=== PATIENT | female | born 1955 | race Caucasian/White ===

== ENCOUNTER 2016-06-03 07:30 | Inpatient (IN) | payer OTHER ==
--- NOTE | 2016-05-06 16:12 | NUR ---
JOINT REPLACEMENT PREOP CLASS PATIENT ATTENDED JOINT REPLACEMENT PREOP CLASS. CASE MANAGEMENT CONTACT INFORMATION PROVIDED. EDUCATION WAS PROVIDED REGARDING WHAT TO EXPECT BEFORE, DURING AND AFTER SURGERY. INCLUDING: OVERVIEW OF ANATOMY AND PHYSIOLOGY HOSPITAL TREATMENT SCHEDULE THERAPY DEMONSTRATION CASE MANAGEMENT RESPONSIBILITIES DISCHARGE PLANNING EQUIPMENT NEEDS JOINT REPLACEMENT WORKBOOK ANTI-COAGULATION SURGERY STRONG NUTRITIONAL PROTOCOL DISCHARGE [place] [facility] [place], WITH INSTRUCTIONS CJR AND PREOP SURVERY PREOP BATHING- CHG GIVEN ALL PATIENT'S QUESTIONS ANSWERED TO THEIR SATISFACTION. PATIENTS AND COACHES ENCOURAGED TO CALL WITH ANY ADDITIONAL QUESTIONS OR CONCERNS. CM FOLLOWING FOR TRANSITIONAL CARE PLANNING NEEDS DURING HOSPITALIZATION.
--- NOTE | 2016-05-19 12:04 | NUR ---
PMH, allergies, meds reviewed and documented. Preop and DOS instructions given including handouts of medications to stop before surgery, Surgical services pamphlet, ortho consent, letter from Dr Humphrey, and my contact information. Patient declined any further handouts. Requested patient to contact insurance company to get the name correct on her insurance card.
[~2016-06-03] VITALS: Ht 158.8 cm; Wt 99.0 kg
[~2016-06-03 07:30] MED LIST: ACETAMINOPHEN 500 MG TABLET PO ONE; ADAL40PE SQ; CEFAZOLIN 1 GRAM INJECTION IV ONE; CEFAZOLIN 2 GM VIAL IV ONE; DEXAMETHASONE 4mg/ml - 1ml INJECTION IV ONE; EPINEPHRINE 0.25 MG, BUPIVACAINE 0.25% 75 MG, MORPHINE SULFATE 15 MG, KETOROLAC 60 MG i... INJ ONE; FAMOTIDINE 20mg IVPB 50 ML IV ONE; FOLI-40 PO; LACT1CAP73 PO; LEVO150T9 PO; LIDOCAINE 1% (10mg/ml) 2ml SDV SQ ONE; LR 1,000 ML IV SCH; METH2.5T6 PO; METOCLOPRAMIDE 10mg/2ml INJECTION IV ONE; NOZIN NASAL SWAB NS ONE; ONDANSETRON 4mg/2ml INJECTION IV ONE
[2016-06-03] MEDS ORDERED: NAPROXEN 220 MG TABLET PO ONE (09:00)
[2016-06-03] MEDS ORDERED: TRANEXAMIC ACID 1000 MG/10 ML TOP ONE (13:00)
[2016-06-20] MEDS ORDERED: NORT50CA PO (10:30)
[2016-06-20] MEDS ORDERED: HYDR-4078 PO (10:30)
[2016-06-26] VITALS (27 sets, daily range): BP systolic 88–175; BP diastolic 50–81; PULSE 57–96; RESP 12–20; TEMP 96.9–98.4; O2SAT 91–99; Ht 158.8 cm; Wt 99.0 kg
[2016-06-26] MEDS ORDERED: FAMOTIDINE 20mg IVPB 50 ML IV ONE (06:00)
[2016-06-26] MEDS ORDERED: MELOXICAM 15 MG TABLET PO ONE (06:00)
[2016-06-26] MEDS ORDERED: TRANEXAMIC ACID 1000 MG/10 ML TOP ONE (06:00)
[2016-06-26] MEDS ORDERED: LIDOCAINE 1% (10mg/ml) 2ml SDV SQ ONE (06:00)
[2016-06-26] MEDS ORDERED: METOCLOPRAMIDE 10mg/2ml INJECTION IV ONE (06:00)
[2016-06-26] MEDS ORDERED: DEXAMETHASONE 4mg/ml - 1ml INJECTION IV ONE (07:00)
[2016-06-26] MEDS ORDERED: ONDANSETRON 4mg/2ml INJECTION IV ONE (07:00)
[2016-06-26] MEDS ORDERED: ACETAMINOPHEN 500 MG TABLET PO ONE (07:00)
[2016-06-26] MEDS ORDERED: NOZIN NASAL SWAB NS ONE ×2 (07:00→12:00)
[2016-06-26] MEDS ORDERED: DOCU-168 PO (07:41)
[2016-06-26 07:48] LABS: ANION GAP 15 MEQ/L (5-15); BUN/CREATININE RATIO 16 RATIO (6-26); CALCIUM 9.5 MG/DL (8.4-10.2); CHLORIDE 102 MEQ/L (98-107); CO2 - CARBON DIOXIDE 27 MEQ/L (22-30); CREATININE 0.7 MG/DL (0.7-1.2); GLOMERULAR FILTRATION RATE 85; GLUCOSE 107 MG/DL (65-110); POTASSIUM 3.7 MEQ/L (3.6-5); SODIUM 144 MEQ/L (134-144)
[2016-06-26] MEDS: LR 1,000 ML IV SCH (07:55)
[2016-06-26] MEDS ORDERED: EPINEPHRINE 0.25 MG, BUPIVACAINE 0.25% 75 MG, MORPHINE SULFATE 15 MG, KETOROLAC 60 MG i... INJ ONE ×5 (08:00)
[2016-06-26] MEDS ORDERED: CEFAZOLIN 1 GRAM INJECTION IV ONE (08:00)
--- NOTE | 2016-06-26 08:28 | ANESPREOP ---
Anesthesia Record Date and Time DATE: 06/26/16 TIME: 08:23 Pre-Op Diagnosis OA Right Knee Proposed Surgical Procedure RT TKA Allergies: Coded Allergies: Sulfa (Sulfonamide Antibiotics) (Verified Allergy, Unknown, HIVES, 06/26/16 ) Ht/Wt/BMI Height: 5 ' 2.50 " Weight: 95.700 kg BMI: 38.0 kg/m2 Vital Signs Date Time Temp Pulse Resp B/P Pulse Ox O2 Delivery O2 Flow Rate FiO2 06/26/16 07:10 98.3 93 15 175/81 98 Room Air Medications Inpatient Medications Current Medications Medications (Trade) Dose Ordered Sig/Bridger Start Time Stop Time Status Last Admin Dose Admin Lactated Ringer's 1,000 ml @ 50 mls/hr Q20H 06/03/16 07:00 Cancel Lactated Ringer's (Lactated Ringers) 1,000 ml @ 50 mls/hr Q20H 06/26/16 07:00 06/26/16 07:55 50 MLS/HR Adalimumab (Humira) 40 Mg/0.8 Ml Pen.ij.kit, 1 SYRINGE SQ Q2WK, (Reported) TAKES EVERY OTHER THURSDAY Last Taken: on 06/04/16 Docusate Sodium (Colace) 100 Mg Capsule, 1 CAP PO BID, (Reported) Last Taken: on 06/25/16 2100 Folic Acid (Folic Acid) 1 Mg Tablet, 1 MG PO DAILY, (Reported) Last Taken: on 06/22/16 Hydrocodone/Acetaminophen ([place] 10-325 Tablet) 10- 325 Tablet, 1-2 TAB PO Q4-6H, (Reported) Last Taken: on 06/25/16 2130 Lactobacillus Combination No.4 (Probiotic) 1 Each Capsule, 1 CAP PO HS, (Reported) Last Taken: on 06/25/16 0700 Levothyroxine Sodium (Levothyroxine Sodium) 150 Mcg Tablet, 150 MCG PO DAILY, (Reported) Last Taken: on 06/26/16 0540 Methotrexate Sodium (Methotrexate) 2.5 Mg Tablet, 8 TAB PO THURSDAY, (Reported) Last Taken: on 06/13/16 Currently on Beta Adalgisa: No Medical/Surgical History Anesthesia PMH: Reports: Asthma (INHALERS PRN), Deep Vein Thrombosis ( SUPERFICIAL BLOOD CLOT IN ONE LEG-9-10 YRS AGO), Thyroid Disease, Denies: Anesthesia Reactions (SHIVERING; OTHERWISE NO KNOWN AIRWAY ISSUES), Cancer, Glaucoma, Malignant Hyperthermia, Sleep Apnea Smoking Status: Never smoker Use Chewing Tobacco?: No Second Hand Exposure: No Substance Use Type: does not use Alcohol Intake: a few times a month, other (occas) HX of Last Menstrual Period: HYST Past Surgical History Orthopedic Surgeries: Yes - LT TKA;MULT KNEE SCOPES; RT RCR Abdominal Surgeries: Genitourinary Surgeries: Cardiac Surgeries: Endocrine Surgeries: Reproductive Surgeries: Yes - HYST Neurological Surgeries: Ear Surgeries: Nose Surgeries: Throat Surgeries: Yes - TONSILLECTOMY Other Surgeries: Anesthesia Adverse Reactions: FOUND none Family Hx of Anesthesia Advers: none Hx of Motion Sickness: No Pertinent Findings Laboratory Tests 06/26/16 07:15 EKG Rhythm: Sinus Rhythm Physical Exam Respiratory: Bilat breath sounds equal, Lungs clear Cardiovascular: FOUND Regular rate, rhythm, FOUND No murmur Airway Assessment Mallampati Score: II TMD: 3 Fingerbreadths Neck Extension: Good Overall Assessment: No Airway Concerns ASA: 2 Plan Regional: Spinal Peripheral Nerve Block: Saphenous - RT Discussion Discussed risks/options/alternatives of anesthesia and questions answered. Patient consents. Nursing pain assessment noted. Present: Spouse Attestation Statement Prior to the delivery of any anesthetic medication, I examined the patient, developed the plan, obtained the patient's consent and discussed the risk and benefits of the procedure with the patient/guardian. JOSE RUANO CRNA Jun 26, 2016 08:27
[2016-06-26] MEDS ORDERED: VANCOMYCIN 1 GRAM INJECTION ONE (08:52)
[2016-06-26] MEDS ORDERED: MIDAZOLAM 2mg/2ml INJECTION ONE (09:07)
[2016-06-26] MEDS ORDERED: FENTANYL 100mcg/2ml INJECTION ONE (09:07)
[2016-06-26] MEDS ORDERED: KETAMINE 500mg/10ml INJECTION ONE (09:20)
[2016-06-26] MEDS ORDERED: PROPOFOL 500mg 50 ML IV ONE (09:20)
[2016-06-26] MEDS ORDERED: LIDOCAINE 2% (20mg/ml) 5ml PF SDV ONE (09:20)
[2016-06-26] MEDS ORDERED: PROPOFOL 200mg 20 ML IV ONE (10:50)
[2016-06-26] MEDS ORDERED: ROPIVACAINE 0.5% (5mg/ml) 30ml INJ ONE (11:27)
[2016-06-26] MEDS ORDERED: SENNOSIDES 8.6 MG TABLET PO PRN (12:00)
[2016-06-26] MEDS ORDERED: NAPROXEN 220 MG TABLET PO PRN (12:00)
[2016-06-26] MEDS ORDERED: METOCLOPRAMIDE 10mg/2ml INJECTION IV PRN (12:00)
[2016-06-26] MEDS ORDERED: DiphenhydrAMINE 50 MG/ML INJECTION IV PRN (12:00)
[2016-06-26] MEDS ORDERED: ONDANSETRON 4mg/2ml INJECTION IV PRN (12:00)
[2016-06-26] MEDS ORDERED: PRN ORDERS MC (12:00)
[2016-06-26] MEDS ORDERED: DiphenhydrAMINE 25 MG CAPSULE PO PRN (12:00)
[2016-06-26] MEDS ORDERED: LORAZEPAM 1 MG TABLET PO PRN (12:00)
--- NOTE | 2016-06-26 12:40 | ANESPO ---
Post-Op Note Date 06/26/16 Time: 12:40 Status Pt Participated in Evaluation: Pt participated in person Vital Signs Date Time Temp Pulse Resp B/P Pulse Ox O2 Delivery O2 Flow Rate FiO2 06/26/16 12:30 84 16 111/68 96 Room Air 06/26/16 12:01 97.9 Respiratory Function: Airway patent, Regular respirations Cardiovascular Function: Regular pulse Telemetry Pattern: SR Mental Status: Alert/oriented Pain Level Intensity: 0 Unable to Assess Pain Due To: INTRA OP Hydration: IV infusing Complications during Recovery None apparent Follow-Up Instructions Instructions Per Surgeon JOSE RUANO CRNA Jun 26, 2016 12:40
--- NOTE | 2016-06-26 12:42 | ANESPD ---
Peripheral Nerve Blockade Physician: Humberto Humphrey MD Date: 06/26/16 Surgical Procedure: Right TKA Discussion Discussed risks/options/alternatives of anesthesia and questions answered. Patient consents. Nursing pain assessment noted. Block Start: 12:06 Block Stop: 12:20 Block Employed: Adductor Canal Indication: post-operative pain Approach: right side confirmed Position: supine Patient: Consent, risks/benefits discussed, Informed, post block act. discussed Monitors: EKG, SpO2, NIBP Sedation: Awake Initial Vital Signs First Documented Vital Signs Date Time Temp Pulse Resp B/P Pulse Ox O2 Delivery O2 Flow Rate FiO2 06/26/16 07:10 98.3 93 15 175/81 98 Room Air Post Vital Signs Vital Signs Date Time Temp Pulse Resp B/P Pulse Ox O2 Delivery O2 Flow Rate FiO2 06/26/16 12:30 84 16 111/68 96 Room Air 06/26/16 12:01 97.9 Initial Pain Score: 0 Post Block Score: 0 Prep: chlorhexadine/ETOH Ultrasound Used?: Yes Nerve Simulator Muscle Response: No Injectate Ropivacaine (%): 0.5 Ropivacaine (mL): 20 Was Epi 1:200,000 Used?: No Injection Injection made incrementally with constant monitoring and aspiration every [5] ml. JOSE RUANO CRNA Jun 26, 2016 12:42
--- NOTE | 2016-06-26 12:58 | DI ---
Indication: ITS.REASON: POSTOP right knee replacement PROCEDURE: KNEE RIGHT 2 VIEW: Encounter: Initial Comparison: None Findings: Postoperative changes of right total knee replacement are seen. There is expected postoperative subcutaneous gas. No evidence of hardware failure or acute fracture. No retained radiopaque surgical instruments or sponges. Overlying material causing artifact. Impression: New right total knee prosthesis without evidence of immediate complication. .
--- NOTE | 2016-06-26 13:04 | NUR ---
WARFARIN CONSULT S: 60 y/o F starting warfarin for VTE ppx post-TKA. Goal INR 1.5-2.5. O: Date INR Warfarin Dose 06/26 -- PLAN: 4 mg A/P: No significant drug-drug interactions. Will order warfarin 4 mg PO x 1 today. Will continue to monitor & make adjustments accordingly. Thank you for the consult. Carmella Tony, PharmD, BCPS
[2016-06-26] MEDS ORDERED: WARFARIN 4 MG TABLET PO ONE (13:15)
--- NOTE | 2016-06-26 13:27 | NUR ---
Admit Pt admitted from PACU via cart. Pt awake and conversing appropriately with staff. Pt transferred on to bed with use of slide board. SCDs and polar pack in place. Pt denies pain and nausea. Post op vitals started and stable.
--- NOTE | 2016-06-26 14:14 | PDOPERATE ---
Operative Report Date of Operation 06/26/16 Side: Right Preoperative Diagnosis: knee primary DJD Postoperative Diagnosis Same as preoperative diagnosis. Operation/Procedure: total knee arthroplasty (right) Surgeon Eder Humphrey MD Yarn Sorter BERTRAND Reid Complications None. Regional Block: Spinal Estimated Blood Loss See Anesthesia Record. Fluids Please See Anesthesia Record. Description of Operation Ms. Rodarte and her right knee were identified and marked in the the preoperative holding area. She was then brought back to the operating suite and proper anesthesia was administered. She was then positioned supine on the operating table. The right lower extremity was then prepped and draped in my normal sterile fashion. Timeout was performed with all operating room personnel. The leg was exsanguinated and tourniquet inflated 250 mmHg. Preoperative motion was very limited with flexion to 90. A standard anterior incision followed by a medial parapatellar approach was utilized. The knee was extremely tight and we started by removing anterior osteophytes and resurfacing the patella to a size 29. Large medial release had to be performed in order to expose the distal femur. A distal femoral cut was made in 5 of valgus using intramedullary guide. The femur was sized at a 4 and rotation set using the epicondylar axis. Distal femoral cuts were performed. A proximal tibial cut was made using extramedullary guide. Remaining osteophytes and meniscus were removed which were extensive especially posteriorly. I cut for a PS box to allow for more flexion. Gaps were checked and they were well balanced and rectangular. Trial components were placed with a 9 mm spacer. This allowed for range of motion to approximately 110 and the patella tracked well. The tourniquet was let down which did help with flexion. The knee was stable throughout range of motion. The tibia rotation was then marked and the tibia stamped at the proper rotation at a size 3. The bone was prepared for cementing and all components cemented into place and allowed to cure in extension. Betadine solution was used for 3 minutes during the curing period and then fully irrigated out with 1 L of normal saline. The tourniquet was deflated and hemostasis obtained with electrocautery. After the cement had cured the knee was taken through range of motion check for balance and stability which were good. Vancomycin powder was placed into the wound. The arthrotomy was closed with #1 Vicryl. The remainder of the wound was then closed by my elementary assistant teacher utilizing 2-0 vycral in the subcutaneous tissue. 4-0 monocryl was used in the subcuticular layer followed by dermabond and a sterile dressing. After closure the patient will be transferred to the recovery room under the care of anesthesia. OMI HUMPHREY MD Jun 26, 2016 14:14
[2016-06-26] MEDS: NOZIN NASAL SWAB NS SCH ×2 (14:28→21:17)
[2016-06-26] MEDS: CEFAZOLIN 2 G in NORMAL SALINE 100 ML IV SCH (16:50)
[2016-06-26] MEDS: NORMAL SALINE 1,000 ML IV SCH (17:13)
--- NOTE | 2016-06-26 18:47 | NUR ---
SHIFT SUMMARY PT ALERT AND ORIENTED X3. PT ON RA, DENIES SOA. RATES PAIN 3/10 AT THIS TIME, PRN ALEVE AND NORCO ADMINISTERED THIS SHIFT, PT REPORTED DECREASED PAIN. PT DENIES N/V. ADEQUATE URINE OUTPUT, PT DENIES RETENTION. POLAR PACK APPLIED TO RIGHT KNEE. PT UP WITH STAND BY ASSIST, GAIT BELT, WALKER. PT ABLE TO MAKE NEEDS KNOWN. DRESSING TO RIGHT KNEE C/D/I. IVF INFUSING ORDERED INTO RIGHT HAND. BED ALARM ON, CALL LIGHT WITHIN REACH.
[2016-06-26] MEDS ORDERED: ENOXAPARIN 40 MG/0.4 ML INJECTION SQ SCH (21:00)
[2016-06-26] MEDS ORDERED: OXYCODONE I.R. 5 MG TABLET PO PRN (21:30)
[2016-06-26] MEDS ORDERED: SENNOSIDES 8.6 MG TABLET PO SCH (22:00)
[2016-06-27 00:12] VITALS: BP 108/66; PULSE 65; RESP 14; TEMP 98.5; O2SAT 93
[2016-06-27] MEDS: NORMAL SALINE 1,000 ML IV SCH (00:25)
[2016-06-27 01:00] VITALS: BP 108/66; PULSE 65; RESP 14; TEMP 98.5; O2SAT 93
[2016-06-27] MEDS: CEFAZOLIN 2 G in NORMAL SALINE 100 ML IV SCH (01:34)
[2016-06-27] MEDS: LR 1,000 ML IV SCH (03:00)
[2016-06-27 05:06] LABS: HGB - HEMOGLOBIN 11.8 GM/DL (12-16); MEAN CORPUSCULAR HGB 29.9 UUG (26-34); MEAN CORPUSCULAR HGB CONC(MCHC 31.9 GM/DL (31-37); MEAN CORPUSCULAR VOLUME 93.9 UM3 (80-100); MEAN PLATELET VOLUME 10.8 UM3 (9.4-12.4); RED BLOOD COUNT 3.94 M/MM3 (4.00-5.20); WBC - WHITE BLOOD COUNT 16.9 T/MM3 (4.5-11.0)
[2016-06-27 05:17] LABS: INR 1.15 (0.76-1.04); PROTHROMBIN TIME 12.5 SEC (9.31-12.49)
--- NOTE | 2016-06-27 05:19 | NUR ---
Pt had a restful night after her pain medication was changed.
[2016-06-27 05:23] LABS: ANION GAP 14 MEQ/L (5-15); BUN/CREATININE RATIO 23 RATIO (6-26); CALCIUM 8.6 MG/DL (8.4-10.2); CHLORIDE 106 MEQ/L (98-107); CO2 - CARBON DIOXIDE 23 MEQ/L (22-30); CREATININE 0.8 MG/DL (0.7-1.2); GLOMERULAR FILTRATION RATE 73; GLUCOSE 130 MG/DL (65-110); POTASSIUM 4.3 MEQ/L (3.6-5); SODIUM 143 MEQ/L (134-144)
[2016-06-27] MEDS: NOZIN NASAL SWAB NS SCH (05:53)
[2016-06-27] MEDS ORDERED: LEVOTHYROXINE 150 MCG TABLET PO SCH (06:30)
[2016-06-27] MEDS ORDERED: OXYCODONE I.R. 5 MG TABLET PO PRN (06:30)
[2016-06-27 08:00] VITALS: PULSE 61; RESP 18
[2016-06-27 08:04] VITALS: BP 108/60; PULSE 61; RESP 18; TEMP 97.5; O2SAT 99
--- NOTE | 2016-06-27 08:11 | PDORTHOPN ---
Subjective Date DATE: 06/27/16 TIME: 08:07 Objective Vital Signs Vital signs Vital Signs 06/26/16 06/27/16 06/27/16 06/27/16 21:34 00:12 01:00 08:00 Temp 97.3 98.5 98.5 Pulse 69 65 65 61 Resp 16 14 14 18 B/P 106/64 108/66 108/66 Pulse Ox 95 93 93 O2 Delivery Room Air Room Air Room Air 06/27/16 08:04 Temp 97.5 Pulse 61 Resp 18 B/P 108/60 Pulse Ox 99 O2 Delivery Room Air Height (Feet): 5 Height (Inches): 2.50 Weight (Kilograms): 99.000 Laboratory Laboratory Laboratory Tests 06/27/16 04:22 Laboratory Tests 06/26/16 07:15 06/27/16 04:22 Assessment & Plan Problems: (1) Degenerative arthritis of right knee Status: Chronic Qualifiers: Osteoarthritis type: primary Qualified Codes: M17.11 - Unilateral primary osteoarthritis, right knee Assessment & Plan: Lovenox-Coumadin protocol for VTE prophylaxis. SCD's and early mobilization for added DVT protection. PT/OT services to improve independent function. Discharge Planning per Case Management. (2) Leukocytosis Status: Acute Assessment & Plan: She is afebrile and has no s/sx of infection. This is likely a stress response to surgery / patria operative steroids. Will monitor for signs of infection. (3) Rheumatoid arthritis Status: Chronic Assessment & Plan: Hold off Methotrexate and immune modulator drugs for now. Hospital Course Summary Disclaimer The visit summary below is not to be considered part of the above Progress Note. FIGUEROA JEWELL Jun 27, 2016 08:11
[2016-06-27] MEDS ORDERED: DOCUSATE SODIUM 100 MG CAPSULE PO SCH (09:00)
[2016-06-27] MEDS ORDERED: POLYETHYL.GLYCOL 3350 PACKET 17gm PO SCH (09:00)
[2016-06-27] MEDS ORDERED: FOLIC ACID 1 MG TABLET PO SCH (09:00)
--- NOTE | 2016-06-27 09:59 | NUR ---
WARFARIN CONSULT S: 60 y/o F starting warfarin for VTE ppx post-TKA. Goal INR 1.5-2.5. O: Date INR Warfarin Dose 06/26 -- 4 mg 06/27 -- Plan 5 mg A/P: No significant drug-drug interactions. I will order warfarin 5 mg PO x 1 today as the INR is subtherapeutic. The Pharmacy will continue to monitor & make adjustments accordingly. Thank you for the consult, Devon Walters RPh.
--- NOTE | 2016-06-27 10:02 | NUR ---
CM CM IN TO VISIT WITH PT. SHE IS ALERT AND ORIENTED. SHE PLANS TO RETURN HOME. SHE WILL DO OUTPT PT AT [facility]. SHE HAS FWW. HER DAUGHTER WILL GIVE HER LOVENOX INJECTIONS. RX IS CALLED TO [facility] TO CHECK [facility] FOR LOVENOX 40MG SQ DAILY #5 NO REFILL. PT IS GIVEN CM CONTACT INFORMATION. LACE SCORE IS 6. Addendum: 06/27/16 at 1003 by TARUN BILLS RN Amended: Links added.
[2016-06-27] MEDS ORDERED: WARFARIN 5 MG TABLET PO SCH (12:00)
[2016-06-27 12:12] VITALS: BP 131/67; PULSE 82; RESP 16; TEMP 96.3; O2SAT 99
[2016-06-27] MEDS ORDERED: ENOX40DI SQ (12:13)
[2016-06-27] MEDS ORDERED: NAPR-1119 PO (12:13)
[2016-06-27] MEDS ORDERED: WARF2.5T73 PO (12:13)
[2016-06-27] MEDS ORDERED: HYDR-3995 PO (12:13)
[2016-06-27] MEDS ORDERED: POLY17PO18 PO (12:13)
--- NOTE | 2016-06-27 12:21 | DSPDOC ---
General Date Date DATE: 06/27/16 TIME: 12:18 Attending Physician Humberto Humphrey MD Admitting Physician Humberto Humphrey MD Consulting Physician Admitting Diagnosis PRIMARY DEGENERATIVE JOINT DISEASE RIGHT KNEE Discharge Diagnosis Primary DJD right knee Procedures Right total knee arthroplasty Diagnosis Right knee primary DJD History of Present Illness HPI Elements This patient was admitted for elective surgical tx of end stage degenerative joint disease that failed to respond to conservative treatment. Further details of this is found in the admission H&P. Hospital Course After appropriate preoperative clearance and signing of operative consent, the patient was given IV antibiotics, according to orthopedic protocol. The patient was taken to the operating room and underwent elective joint arthroplasty. Following surgery, antibiotics were discontinued less than 24 hours according to joint protocol. Appropriate anticoagulants were initiated and SCDs added for DVT prevention. The dressing was clean, dry, and intact. Pain control was obtained via multimodal approach. Bowel motivation addressed with scheduled and PRN medications. Early mobilization was initiated through PT services. Discharge arrangements made by a collaborative effort between the patient and Case Management. Follow-up is scheduled in 2-3 weeks. Discharge instructions given by orthopedic providers and nursing staff at discharge. Discharge condition was good. Problems: (1) Degenerative arthritis of right knee Status: Chronic Assessment & Plan: Lovenox-Coumadin protocol for VTE prophylaxis. SCD's and early mobilization for added DVT protection. PT/OT services to improve independent function. Discharge Planning per Case Management. (2) Leukocytosis Status: Acute Assessment & Plan: She is afebrile and has no s/sx of infection. This is likely a stress response to surgery / patria operative steroids. Will monitor for signs of infection. (3) Rheumatoid arthritis Status: Chronic Assessment & Plan: Hold off Methotrexate and immune modulator drugs for now. Ongoing Care Required?: No Leukocytosis: d/t IV Decadron preop, d/t surg. stress response Laboratory Laboratory Tests Test 06/27/16 04:22 White Blood Count 16.9T/MM3 Red Blood Count 3.94M/MM3 Hemoglobin 11.8GM/DL Hematocrit 37.0% Mean Corpuscular Volume 93.9UM3 Mean Corpuscular Hemoglobin 29.9UUG Mean Corpuscular Hemoglobin Concent 31.9GM/DL RDW Standard Deviation 48.6FL Platelet Count 224T/MM3 Mean Platelet Volume 10.8UM3 Prothromb Time International Ratio 1.15 Turbidity < 20 Sodium Level 143MEQ/L Potassium Level 4.3MEQ/L Chloride Level 106MEQ/L Carbon Dioxide Level 23MEQ/L Anion Gap 14MEQ/L Blood Urea Nitrogen 18.0MG/DL Creatinine 0.8MG/DL Glomerular Filtration Rate Calc 73 BUN/Creatinine Ratio 23RATIO Glucose Level 130MG/DL Calculated Osmolality 279MOSM/KG Calcium Level 8.6MG/DL Icterus Index < 2 Chemistry Specimen Hemolysis < 15 Home Meds Active Scripts Hydrocodone/Apap ([place] 10-325 Tablet) 10-325 Tablet, 1-2 TAB PO Q4HR, #60 TAB Prov:LEONEL OVALLE 06/27/16 Warfarin Sodium (Warfarin Sodium) 2.5 Mg Tablet, 2.5 MG PO NOON, #30 TAB Take 1 tablet, by mouth, 1 time a day (at NOON). Prov:LEONEL OVALLE 06/27/16 Polyethylene Glycol 3350 (Healthylax) 17 Gm Powd.pack, 17 G PO DAILY, #30 PACKET Prov:LEONEL OVALLE 06/27/16 Naproxen Sodium (Naproxen 220mg) 220 Mg Tablet, 440 MG PO BID Y for PAIN, #84 TAB Prov:LEONEL OVALLE 06/27/16 Enoxaparin Sodium (Lovenox) 40 Mg/0.4 Ml Inj, 40 MG SQ Q24H, #5 Prov:LEONEL OVALLE 06/27/16 Reported Medications Docusate Sodium (Colace) 100 Mg Capsule, 1 CAP PO BID for STOOL SOFTENING 06/26/16 Lactobacillus Combination No.4 (Probiotic) 1 Each Capsule, 1 CAP PO HS 05/19/16 Folic Acid (Folic Acid) 1 Mg Tablet, 1 MG PO DAILY 01/20/12 Levothyroxine Sodium (Levothyroxine Sodium) 150 Mcg Tablet, 150 MCG PO DAILY 01/20/12 Discontinued Reported Medications Hydrocodone/Acetaminophen ([place] 10-325 Tablet) 10-325 Tablet, 1-2 TAB PO Q4-6H , TAB 06/20/16 Adalimumab (Humira) 40 Mg/0.8 Ml Pen.ij.kit, 1 SYRINGE SQ Q2WK, SYRINGE TAKES EVERY OTHER Thursday05/19/16 Methotrexate Sodium (Methotrexate) 2.5 Mg Tablet, 8 TAB PO Thursday05/19/16 Discharge Disposition Please refer to Case Management Notes for patient's disposition. Estimated Blood Loss 50.0 LEONEL OVALLE Jun 27, 2016 12:21
[2016-06-27] MEDS ORDERED: OXYC5TAB84 PO (14:25)
--- NOTE | 2016-06-27 14:42 | NUR ---
Discharge Pt discharged at this time via ambulatory status through the main entrance in the company of an adult. VS stable on RA. Mepilex dressing c/d/i. Prescriptions sent with Pt. IV catheter DC'd prior to discharge, catheter tip intact. Discharge instructions and packet gone over with Pt. This RN discussed medications, activity, restrictions, diet, and follow up appts with Pt. Pt verbalized understanding.
[2016-06-28] MEDS ORDERED: MILK OF MAGNESIA 30 ML SUSP PO SCH (08:00)
[2016-06-28] MEDS ORDERED: BISACODYL 10 MG SUPPOSITORY RECTALLY SCH (20:00)
== END 2016-06-27 14:42 | disposition home or self-care (01) | DRG 470 ==
LOC: SRG 06-26 06:44
PROVIDERS: ADMIT Orthopaedic Surgery; ATTEND Orthopaedic Surgery
PROC: 0SRC0J9 Replacement of Right Knee Joint with Synthetic Substitute, Cemented, Open Approach (ICD-10-PCS; principal; 2016-06-26 09:40)
DX: M17.11 Unilateral primary osteoarthritis, right knee (principal); D72.829 Elevated white blood cell count, unspecified; M06.861 Other specified rheumatoid arthritis, right knee; E03.9 Hypothyroidism, unspecified; J45.909 Unspecified asthma, uncomplicated; Z96.652 Presence of left artificial knee joint; E78.5 Hyperlipidemia, unspecified
CPT/HCPCS: 36415; 80048; 85027; 85610; 94664

== ENCOUNTER 2016-07-05 18:36 | Emergency (ER) | payer OTHER ==
[~2016-07-05] VITALS: Ht 158.8 cm; Wt 98.5 kg
[~2016-07-05 18:36] MED LIST changes: -ACETAMINOPHEN 500 MG TABLET PO ONE; -ADAL40PE SQ; -CEFAZOLIN 1 GRAM INJECTION IV ONE; -CEFAZOLIN 2 GM VIAL IV ONE; -DEXAMETHASONE 4mg/ml - 1ml INJECTION IV ONE; +DOCU-168 PO; +ENOX40DI SQ; -EPINEPHRINE 0.25 MG, BUPIVACAINE 0.25% 75 MG, MORPHINE SULFATE 15 MG, KETOROLAC 60 MG i... INJ ONE; -FAMOTIDINE 20mg IVPB 50 ML IV ONE; -LIDOCAINE 1% (10mg/ml) 2ml SDV SQ ONE; -LR 1,000 ML IV SCH; -METH2.5T6 PO; -METOCLOPRAMIDE 10mg/2ml INJECTION IV ONE; +NAPR-1119 PO; -NOZIN NASAL SWAB NS ONE; -ONDANSETRON 4mg/2ml INJECTION IV ONE; +OXYC5TAB84 PO; +POLY17PO18 PO; +WARF2.5T73 PO
--- OUTSIDE RECORDS SUMMARY | 2016-07-05 18:39 | XMS REPORT | Continuity of Care Document ---
Author Author [facility] Organization [facility] Address Unknown Phone Unavailable Support Name Relationship Address Phone OMI HUMPHREY MD Caregiver [address] [place] [address] Unavailable OMI HUMPHREY MD Caregiver [address] [place] [address] Unavailable DYLLAN PENA Caregiver [address] [place] [address] Unavailable RAFAEL ALCALA Next Of Kin [address] [place], [place] [id number] Insurance Providers Guarantor AricGillian bangColleen Address [address] [id number] Email DENIED 16 Payer [employer] Policy Number [id number] Subscriber's Name Rafael Alcala Relationship 01 Spouse Group Number [id number] Advance Directives Directive Response Recorded Date/Time Ordered Resuscitation Status Full Code 06/02/16 12:25pm Resuscitation Documents on File No 06/26/16 7:40am DPOA for Healthcare Only No 06/26/16 7:40am Living Will No 06/26/16 7:40am Problems Active Problems Medical Problem Onset Date Status Asthma Unknown Degenerative arthritis of right knee Unknown Chronic Fibromyalgia Unknown Hyperlipemia Unknown Hypothyroidism Unknown Leukocytosis Unknown Acute Obesity, morbid, BMI 40.0-49.9 Unknown Rheumatoid arthritis Unknown Chronic Medications Current Home Medications Medication Dose Units Route Directions Days Qty Instructions Start Date Docusate Sodium (Colace) 100 Mg Capsule 1 Cap Oral Twice A Day for Stool Softening 06/26/16 Enoxaparin Sodium (Lovenox) 40 Mg/0.4 Ml Inj 40 Mg Sub-Q Every 24 Hours 5 06/27/16 Folic Acid 1 Mg Tablet 1 Mg Oral Daily 01/20/12 Lactobacillus Combination No.4 (Probiotic) 1 Each Capsule 1 Cap Oral Bedtime 05/19/16 Levothyroxine Sodium 150 Mcg Tablet 150 Mcg Oral Daily 01/20/12 Naproxen Sodium (Naproxen 220MG) 220 Mg Tablet 440 Mg Oral Twice A Day as needed for Pain 84 Tablet 06/27/16 Oxycodone Hcl 5 Mg Tablet 5-15 Mg Oral Every 3 Hours as needed for Pain 50 Tablet 06/27/16 Polyethylene Glycol 3350 (Healthylax) 17 Gm Powd.pack 17 G Oral Daily 30 Packet 06/27/16 Warfarin Sodium 2.5 Mg Tablet 2.5 Mg Oral Give At Noon 30 Tablet Take 1 tablet, by mouth, 1 time a day (at NOON). 06/27/16 Past Home Medications Medication Directions Ordered Status Adalimumab (Humira) 40 Mg/0.8 Ml Pen.ij.kit, 1 Syringe Sub-Q Every 2 Weeks Discontinued Hydrocodone/Acetaminophen (Trevor 10-325 Tablet) 10-325 Tablet, 1-2 Tab Oral Every 4-6 Hours 06/20/16 Discontinued Methotrexate Sodium (Methotrexate) 2.5 Mg Tablet, 8 Tab Oral Thursday05/19/16 Discontinued Social History Social History Problem Response Recorded Date/Time Onset Date Status Reason for Hospitalization RIGHT TOTAL KNEE REPLACEMENT 06/27/2016 12:27pm Not Applicable Not Applicable Chewing Tobacco Status No 06/26/2016 8:40am Not Applicable Not Applicable Hx Substance Use No 06/26/2016 8:40am Not Applicable Not Applicable Hx Alcohol Use Y 2X WEEK 06/26/2016 8:40am Not Applicable Not Applicable Has the pt used tobacco in the last 12 months No 06/26/2016 8:40am Not Applicable Not Applicable Query Response Start Date Stop Date Smoking Status Never smoker Hospital Discharge Instructions Instructions: Care Instructions: Reason for Hospitalization: RIGHT TOTAL KNEE REPLACEMENT I was in the hospital because (patient own words): right knee replacement Discharge Diet: Resume normal diet as tolerated Discharge Activity: Continue the exercises you were given in the hospital three times a day. Your therapist will provide you with a home therapy program prior to your hospital discharge. As you feel stronger, increase the number of repetitions you do in each session. Please check with us before you swim, use a whirlpool, drive or ride a bicycle. Follow Up Appointments: Follow up as scheduled Pending Lab / Results: No Pending Lab Patient Instructions: Driving may be resumed once you are no longer taking narcotic medications and feel you can safely operate the vehicle. You may wish to practice in an empty parking lot at first. Keep in mind that your reaction time will be delayed for up to 6 weeks after surgery. Contact your surgeon for antibiotics to take before having dental work. Wound/Incision Care: In most cases, a Mepilex dressing will be placed at the time of surgery. This dressing will not need to be covered while showering. Leave dressing in place until your follow-up appointment as long as it remains clean, dry and stuck down well around the edges. Call your Doctor if you encounter a problem with your dressing. Please avoid submerging your incision until it is completely healed, once the Mepilex dressing is removed. This includes bathtubs, swimming pools, and hot tubs. DO NOT USE ALCOHOL, PEROXIDE, OR OINTMENTS of any kind on your incision. Pain Management/Treatment: Ice packs may be used, and will also help with the pain. You will be given a prescription for pain. Expected Signs/Symptoms: Some swelling around the incision, as well as in your feet and legs is normal. To help with this, elevate your feet on a footstool when sitting in a chair, and do the ankle pumps and circles whenever you are sitting still. Muscle action helps to move collected fluid out of the tissues and improve circulation. Ice packs may be used, and will also help with the pain. Report any persistent swelling, calf tenderness, increase in pain, or pain in the calf with warmth, or redness to your doctor. Notify Physician If: Report any complications to my office immmediately. This includes excessive bleeding, wound breakdown, redness around the wound, uncontrolled pain, or fever over 101 on 3 different measurements. Eat a balanced diet and get plenty of rest. During Business Hours:: If you have any questions or concerns, please call during regular office hours ([phone]). After Business Hours:: If you have any problems or need to reach a physician after hours or on the weekend please call the hospital's main number [phone] to have your physician paged. Condition at time of discharge: Good Plan of Care Discharge Date 06/27/16 2:42pm Disposition 01 DISCHARGED HOME, SELF-CARE Instructions/Education Provided [facility] Postop Instructions NMDulce Maria Humphrey General Instructions Prescriptions See Medication Section Additional Instructions/Education FOLLOW UP WITH DR HUMPHREY 07-21-16 @ 1:00PM LAYNE PAGE 06/30/16 AT 8:30AM FOR PHYSICAL THERAPY EVAL. PHONE [phone] [facility] EVERY THURSDAY AND THURSDAY BEGINNING Thursday06/30/16 TO HAVE PT/INR LAB CHECKED. YOU WILL NEED TO DO THIS FOR 4 WEEKS WHILE YOU ARE ON COUMADIN. [facility] LAB TWICE A WEEK (MONDAYS & THURSDAYS) FOR INR LAB DRAW FOR FOUR WEEKS. PHONE [phone] DERMATOLOGY NURSE PRACTITIONER LOVENOX INJECTIONS AT [facility] IN [place]. IT WILL COST $7. BEGIN INJECTIONS ON WEDNESDAY 06/28. Care Plan and Goals See Discharge Instructions Section Functional Status Query Response Date Recorded Mobility Status Ambulatory June 27, 2016 12:27pm Assistive Devices None June 27, 2016 12:27pm Activity Limitations None June 27, 2016 12:27pm Feeding Ability Independent June 27, 2016 12:27pm Toileting Ability Independent June 27, 2016 12:27pm Grooming Ability Independent June 27, 2016 12:27pm Dressing Ability Independent June 27, 2016 12:27pm Driving Ability Independent June 27, 2016 12:27pm Housework Ability Independent June 27, 2016 12:27pm Meal Preparation Ability Independent June 27, 2016 12:27pm Stair Climbing Ability Independent June 27, 2016 12:27pm Ability to complete ADL's impeded by No change June 27, 2016 12:27pm Cognitive/Perceptual Impairments Impaired vision June 27, 2016 12:27pm Visual Assistive Devices Glasses With patient June 26, 2016 1:18pm Allergies, Adverse Reactions, Alerts Allergen Type Severity Reaction Status Last Updated Sulfa (Sulfonamide Antibiotics) Allergy Unknown HIVES Active 06/26/16 Immunizations Query Response on File Recorded Date/Time Hx Influenza Vaccination No 06/26/16 8:40am Hx Pneumococcal Vaccination No 06/26/16 8:40am Hx Tetanus, Diptheria, Pertussis Y L Delt 01/20/12 10:56am Hx Influenza Vaccination No 06/26/16 8:40am Hx Tetanus, Diptheria, Pertussis Y L Delt 01/20/12 10:56am Hx Tetanus Toxoid Vaccination No 01/20/12 10:22am Vital Signs Acute Vital Signs Vital Response Date/Time Temperature (Fahrenheit) 96.3 deg F (96.8 - 99.1) 06/27/2016 12:12pm Temperature (Calculated Celsius) 35.99376 degrees C (36.0 - 37.3) 06/27/2016 12:12pm Temperature Source Temporal 06/27/2016 12:12pm Pulse Rate (adult) 82 bpm (60 - 100) 06/27/2016 12:12pm Respiratory Rate 16 breaths/min (10 - 20) 06/27/2016 12:12pm O2 Sat by Pulse Oximetry 99 % (90 - 100) 06/27/2016 12:12pm Oxygen Delivery Method Room Air 06/27/2016 12:12pm Oxygen Delivery Method Room Air 06/26/2016 2:03pm Blood Pressure 131/67 mm Hg 06/27/2016 12:12pm Blood Pressure Source Automatic Cuff 06/27/2016 12:12pm Height (Feet) 5 feet 06/27/2016 8:11am Height (Inches) 2.50 inches 06/27/2016 8:11am Weight (Kilograms) 99.000 kg 06/27/2016 7:58am Body Mass Index (BMI) 38.0 06/26/2016 7:09am Results Laboratory Results Test Name Result Units Flags Reference Collection Date/Time Result Date/ Time Comments White Blood Count 16.9 T/MM3 H 4.5-11.0 06/27/2016 4:06/27/2016 5: 53am Red Blood Count 3.94 M/MM3 L 4.00-5.20 06/27/2016 4:06/27/2016 5: 53am Hemoglobin 11.8 GM/DL L 12-16 06/27/2016 4:06/27/2016 5:53am Hematocrit 37.0 % 36-46 06/27/2016 4:06/27/2016 5:53am Mean Corpuscular Volume 93.9 UM3 80-100 06/27/2016 4:06/27/2016 5: 53am Mean Corpuscular Hemoglobin 29.9 UUG 26-34 06/27/2016 4:2016 5:53am Mean Corpuscular Hemoglobin Concent 31.9 GM/DL 31-37 06/27/2016 4:06/27/2016 5:53am RDW Standard Deviation 48.6 FL 36.9-50.2 06/27/2016 4:06/27/2016 5 :53am Platelet Count 224 T/MM3 130-400 06/27/2016 4:06/27/2016 5:53am Mean Platelet Volume 10.8 UM3 9.4-12.4 06/27/2016 4:06/27/2016 5: 53am Prothromb Time International Ratio 1.15 H 0.76-1.04 06/27/2016 4:06/27/2016 5:17am THERAPUTIC RANGE=2.00-3.00 FOR ANTI-THROMBOSIS THERAPUTIC RANGE=2.50-3.50 FOR IMPLANTED VALVE Icterus Index < 2 0-7 06/27/2016 4:06/27/2016 5:23am Chemistry Specimen Hemolysis < 15 0-25 06/27/2016 4:06/27/2016 5 :23am 0-25: Specimen Exhibited No Hemolysis. Turbidity < 20 0-20 06/27/2016 4:06/27/2016 5:23am Sodium Level 143 MEQ/L 134-144 06/27/2016 4:06/27/2016 5:23am Potassium Level 4.3 MEQ/L 3.6-5 06/27/2016 4:06/27/2016 5:23am Chloride Level 106 MEQ/L 98-107 06/27/2016 4:06/27/2016 5:23am Carbon Dioxide Level 23 MEQ/L 22-30 06/27/2016 4:06/27/2016 5: 23am Anion Gap 14 MEQ/L 5-15 06/27/2016 4:06/27/2016 5:23am Blood Urea Nitrogen 18.0 MG/DL D H 7-17 06/27/2016 4:06/27/2016 5: 44am Creatinine 0.8 MG/DL 0.7-1.2 06/27/2016 4:06/27/2016 5:23am BUN/Creatinine Ratio 23 RATIO 6-26 06/27/2016 4:06/27/2016 5:23am Glomerular Filtration Rate Calc 73 06/27/2016 4:06/27/2016 5: 23am Glucose Level 130 MG/DL H 65-110 06/27/2016 4:06/27/2016 5:23am Calculated Osmolality 279 MOSM/KG 261-280 06/27/2016 4:22am 06/27/2016 5:23am Calcium Level 8.6 MG/DL D 8.4-10.2 06/27/2016 4:22am 06/27/2016 5:44am Name: COLLEEN ALCALA Unit #: [id number] : 1955 Sex: F Admit Date: 06/26/16 Loc / Svc: SRG Discharge Date: DIAGNOSTIC IMAGING REPORT Report #: [id number] [facility], [place] Indication: ITS.REASON: POSTOP right knee replacement PROCEDURE: KNEE RIGHT 2 VIEW: Encounter: Initial Comparison: None Findings: Postoperative changes of right total knee replacement are seen. There is expected postoperative subcutaneous gas. No evidence of hardware failure or acute fracture. No retained radiopaque surgical instruments or sponges. Overlying material causing artifact. Impression: New right total knee prosthesis without evidence of immediate complication. . Procedures Procedure Status Date Provider(s) Total knee arthroplasty Completed 06/26/16 OMI HUMPHREY MD Encounters Encounter Location Arrival/Admit Date Discharge/Depart Date Attending Provider Discharged Inpatient [facility] 06/26/16 6:44am 06/27/16 2:42pm OMI HUMPHREY MD
[2016-07-05 18:43] VITALS: Ht 158.8 cm; Wt 98.5 kg
--- NOTE | 2016-07-05 18:50 | ERPDOC ---
Departure Disposition Decision Date: Jul 05, 2016 Disposition Decision Time: 20:39 Disposition: 01 DISCHARGED HOME, SELF-CARE Impression Impression Impression: Primary Impression: Posterior right knee pain Additional Impressions: Status post knee replacement Warfarin-induced coagulopathy Severity: Moderate Condition: Improved Seen By: Mid-level only Referrals: DYLLAN PENA (Family) Patient Instructions: IDDulce Maria Humphrey General Instructions Problems/Meds/Labs Reviewed?: Yes Medications reviewed and manag: Yes Additional Instructions: Your venous Doppler did not show a blood clot in your leg. Your INR is sub therapeutic. Increase warfarin to 7.5mg daily (3 tabs of 2.5mg). Repeat INR on Thursday07-08-16. Take oxycodone 5mg, 1-2 tabs every 4 hours as needed for pain. Follow with Dr. Humphrey as scheduled, sooner if worsting symptoms. Follow up care ordered?: Yes Mental Status: Alert, Oriented Scripts Oxycodone HCl (Oxycodone HCl) 5 Mg Capsule 1-2 TAB-CAP PO Q4HPRN for PAIN, #30 CAP Prov: SURENDRA TELLO APRN 07/05/16 Enoxaparin Sodium (Lovenox) 40 Mg/0.4 Ml Inj 0.4 ML SQ DAILY, #1 SYRINGE Give 07-06-16 Prov: SURENDRA TELLO APRN 07/05/16 HPI - Lower Extremity General Stated Complaint: R LEG PAIN Time Seen by Provider: 18:49 Source: patient HPI - Lower Extremity Initial Comments 60 YO F presents to ED with report of increasing pain in posterior knee since this morning. Unsure is she has more swelling. Patient says that she began to "feel not quite right last evening" and reports she was nauseated. Patient cannot tell provider what she means by "not quite right". Patient say she has not taken any oxycodone today for pain. Patient states that her INRs since surgery have be sub-therapeutic. Patient is 9 days status post right knee replacement. Sent to ER by Dr. Humphrey for concern for DVT. Denies fever, chills, SOA. Pain/Severity Scale: Now: 8/10 Pain/Injury Location: right leg, right knee Quality: aching, cramping, sharpness Allergies: Coded Allergies: Sulfa (Sulfonamide Antibiotics) (Verified Allergy, Unknown, HIVES, 07/05/16 ) Past History Past Medical History Metabolic: hypothyroidism Cardiac: DENIES: angina Respiratory: asthma GI: DENIES: ulcers Female: DENIES: renal insufficiency Neurological: fibromyalgia Musculoskeletal: osteoarthritis, rheumatoid arthritis Psychological: DENIES: depression Surgical History Reproductive/: hysterectomy Joint: knee Vaccines Hx Influenza Vaccination: No Hx Pneumococcal Vaccination: No Hx Tetanus, Diptheria, Pertuss: Yes (L Delt) Social History Does patient use chewing tobac: No Second Hand Exposure: No Substance Use Type: does not use Sexuality: male partner Review of Systems Constitutional Constitutional: DENIES: chills, dizziness, fever, weakness Eyes General: DENIES: erythema, exudate Lids/Accessories: DENIES: erythema, swelling ENMT Ears: DENIES: pain Sinuses: DENIES: congestion, rhinorrhea Mouth/Throat: DENIES: sore throat Cardiovascular Cardiac: DENIES: chest pain, murmur Rhythm/Rate: DENIES: palpitations Pulmonary Respiratory: DENIES: cough, dyspnea GI Upper Abdomen: DENIES: nausea, pain, vomiting Lower Abdomen: DENIES: diarrhea, pain General: DENIES: dysuria, pain Musculoskeletal General: joint pain, joint swelling, tenderness Integumentary Skin: DENIES: color change, itching, rash Neurological General: DENIES: ataxia, change in strength, numbness, paralysis/paresis, weakness Psychiatric Psychiatric: DENIES: anxiety, depression, nervousness Physical Exam General General Nourishment: well nourished, well developed, adult, obese General Body Habitus: well groomed Vitals and Pain Weight: Kilograms: Height (feet): 5 Height (inches): 2.50 Triage Pain Scale: Eyes (brief) Eyes Brief: found: EOMI ENMT (brief) ENMT Brief: NOT FOUND: nasal exudate, nasal swelling Neck (brief) Neck: FOUND: trachea midline Respiratory (brief) Respiratory: FOUND: clear all wallace, equal bilaterally, symmetrical Cardiovascular (brief) Cardiac: FOUND: regular rate, regular rhythm Musculoskeletal Joint : Side: Right Joint Findings: FOUND: discoloration (ecchymosis consistent with TKR), pain (TTP behind ), swelling (consistent with normal post TKR), NOT FOUND: instability Comments Patient has swelling from right mid thigh to right lower leg with ecchymosis consistent with normal swelling post TKR. Patient has TTP over posterior knee. No increased warmed to touch or erythema consistent with a cellulitis. Dressing is intact over incision. 2+ pedal pulse. Extremity : Side: Right Extremity: thigh, leg Extremity Findings: FOUND: discoloration, pain, swelling Integumentary (brief) Integumentary Brief: FOUND: dry, pink, warm Neurologic (brief) Neurological Brief: FOUND: motor-no gross deficits, sensory-no gross deficits Psychiatric (brief) Psychiatric Brief: FOUND: alert, oriented Differential Diagnoses Considering: Cellulitis, Contusion, DVT, Other (post op swelling and pain) Progress Results/Orders Orders Procedure Category Date Status Time Us Venous Duplex, US 07/05/16 Resulted Lower Ext Rt Cbc W/Manual LAB 07/05/16 Complete Differential Cmp - Comprehensive LAB 07/05/16 Complete Metabolic INR LAB 07/05/16 Complete Hydromorphone PHA 07/05/16 Complete (Dilaudid) 19:30 Enoxaparin (Lovenox) PHA 07/05/16 Complete 21:30 Lab Results Laboratory Tests Test 07/05/16 19:52 White Blood Count 10.5T/MM3 Red Blood Count 3.76M/MM3 Hemoglobin 11.4GM/DL Hematocrit 35.7% Mean Corpuscular Volume 94.9UM3 Mean Corpuscular Hemoglobin 30.3UUG Mean Corpuscular Hemoglobin Concent 31.9GM/DL RDW Standard Deviation 50.8FL Platelet Count 325T/MM3 Mean Platelet Volume 9.8UM3 Neutrophils % (Manual) 61.0% Band Neutrophils % 1.0% Lymphocytes % (Manual) 28.0% Reactive Lymphocytes % 1.0% Monocytes % (Manual) 8.0% Basophils % (Manual) 1.0% Absolute Neutrophils (Manual) 6.4T/MM3 Band Neutrophils # 0.1T/MM3 Lymphocytes # (Manual) 2.9T/MM3 Reactive Lymphocytes # 0.1T/MM3 Monocytes # (Manual) 0.8T/MM3 Basophils # (Manual) 0.1T/MM3 Red Cell Morphology Comment Normal Prothromb Time International Ratio 1.43 Turbidity < 20 Sodium Level 143MEQ/L Potassium Level 4.0MEQ/L Chloride Level 105MEQ/L Carbon Dioxide Level 27MEQ/L Anion Gap 11MEQ/L Blood Urea Nitrogen 14.0MG/DL Creatinine 0.8MG/DL Glomerular Filtration Rate Calc 73 BUN/Creatinine Ratio 18RATIO Glucose Level 90MG/DL Calculated Osmolality 276MOSM/KG Calcium Level 9.5MG/DL Total Bilirubin 1.00MG/DL Icterus Index < 2 Aspartate Amino Transf (AST/SGOT) 37U/L Alanine Aminotransferase (ALT/SGPT) 41U/L Alkaline Phosphatase 76U/L Total Protein 7.2G/DL Albumin 3.9G/DL Globulin 3.3G/DL Albumin/Globulin Ratio 1.2RATIO Chemistry Specimen Hemolysis < 15 Medications Current ED Medications Hydromorphone HCl (Dilaudid) 1 mg O ONCE IM Last administered on 07/05/16 19: 27; Start 07/05/16 at 19:30; Stop 07/05/16 at 19:31; Status DC Enoxaparin Sodium (Lovenox) 40 mg O ONCE SQ Last administered on 07/05/16 21: 54; Start 07/05/16 at 21:30; Stop 07/05/16 at 21:31; Status DC Progress Progress Patient reports improvement of pain after IM Dilaudid. CBC unremarkable CMP normal INR 1.43 I discussed venous doppler results, labs and conversation I had Dr. Humphrey with patient. Patient states that she probably should have taken oxycodone today. Admits she is almost out of oxycodone. I discussed treatment plan with patient (Lovenox tonight and tomorrow, increasing warfarin to 7.5mg daily, repeat INR Thursday), close follow up with Dr. Humphrey and return precautions which patient verbalized understanding. Consult/PCP Consult/PCP : Physician Contacted: Dr. Humphrey Type of discussion: Phone Consult/PCP Discussion Details I discussed patient labs, venous doppler, VS and exam findings with Dr. Humphrey. Dr. Humphrey would like patient to have lovenox 40mg SQ tonight and lovenox 40mg SQ tomorrow, increase warfarin to 7.5mg daily with repeat INR Thursday. Dr. Humphrey would like patient written for more oxycodone. Ultrasound US : Ultrasound: Venous Doppler (rt lower) Interpretation: Normal, Faxed Report SURENDRA TELLO STONEWORK TRACER Jul 05, 2016 18:50
[2016-07-05] MEDS ORDERED: WARF2.5T73 PO (19:02)
[2016-07-05] MEDS ORDERED: ACET-2161 PO (19:04)
--- NOTE | 2016-07-05 19:05 | NUR ---
ISRA GAMEZ NOTIFED OF NEED TO COME FOR SONO ORDERED.
--- NOTE | 2016-07-05 19:06 | NUR ---
EVER TELLO APRN AT BEDSIDE.
--- NOTE | 2016-07-05 19:27 | NUR ---
MED PT GIVEN INSTRUCTION REGARDING DILUADID. UNDERSTANDING VERBALIZED.
--- NOTE | 2016-07-05 19:29 | NUR ---
SONO TECH AT BEDSIDE.
[2016-07-05] MEDS ORDERED: HYDROMORPHONE 2mg/ml INJECTION IM ONE (19:30)
--- NOTE | 2016-07-05 19:42 | NUR ---
SENIOR OPERATOR AT BEDSIDE FOR VENIPUNCTURE.
[2016-07-05 19:58] LABS: HCT - HEMATOCRIT 35.7 % (36-46); HGB - HEMOGLOBIN 11.4 GM/DL (12-16); MEAN CORPUSCULAR HGB 30.3 UUG (26-34); MEAN CORPUSCULAR HGB CONC(MCHC 31.9 GM/DL (31-37); MEAN CORPUSCULAR VOLUME 94.9 UM3 (80-100); MEAN PLATELET VOLUME 9.8 UM3 (9.4-12.4); RED BLOOD COUNT 3.76 M/MM3 (4.00-5.20); WBC - WHITE BLOOD COUNT 10.5 T/MM3 (4.5-11.0)
[2016-07-05 20:08] LABS: INR 1.43 (0.76-1.04); PROTHROMBIN TIME 15.6 SEC (9.31-12.49)
[2016-07-05 20:12] LABS: ALBUMIN 3.9 G/DL (3.5-5.0); ALBUMIN/GLOBULIN RATIO 1.2 RATIO (1.1-2.2); ALKALINE PHOSPHATASE 76 U/L (38-126); ALT (SGPT) 41 U/L (9-52); ANION GAP 11 MEQ/L (5-15); AST (SGOT) 37 U/L (14-36); BUN/CREATININE RATIO 18 RATIO (6-26); CALCIUM 9.5 MG/DL (8.4-10.2); CHLORIDE 105 MEQ/L (98-107); CO2 - CARBON DIOXIDE 27 MEQ/L (22-30); CREATININE 0.8 MG/DL (0.7-1.2); GLOMERULAR FILTRATION RATE 73; GLUCOSE 90 MG/DL (65-110); SODIUM 143 MEQ/L (134-144); TOTAL PROTEIN 7.2 G/DL (6.3-8.2)
[2016-07-05 20:43] LABS: BAND NEUTROPHILS # 0.1 T/MM3; LYMPHOCYTES # (MANUAL) 2.9 T/MM3 (1-4.8); MONOCYTES # (MANUAL) 0.8 T/MM3 (0-0.8); NEUTROPHILS #(MANUAL)-ABSOLUTE 6.4 T/MM3 (1.8-7.7)
[2016-07-05 20:44] LABS: BASOPHILS # (MANUAL) 0.1 T/MM3 (0-0.2); REACTIVE LYMPHOCYTES # 0.1 T/MM3 (0-0)
--- NOTE | 2016-07-05 20:45 | NUR ---
EVER TELLO APRN AT BEDSIDE.
[2016-07-05] MEDS ORDERED: ENOX40DI SQ (21:24)
[2016-07-05] MEDS ORDERED: OXYC5CAP3 PO (21:24)
[2016-07-05] MEDS ORDERED: ENOXAPARIN 40 MG/0.4 ML INJECTION SQ ONE (21:30)
[2016-07-05 21:58] VITALS: BP 124/58; PULSE 96; RESP 16; TEMP 98.4; O2SAT 96
--- NOTE | 2016-07-05 21:58 | NUR ---
DISMISS PT AMBULATORY TO LOBBY WITH . PT DENIES FURTHER QUESTIONS.
--- NOTE | 2016-07-06 09:11 | DI ---
Indication: ITS.REASON: swelling and pain in knee, status post knee replacement, sub-ther PROCEDURE: US VENOUS DUPLEX, LOWER EXT RT: Encounter: Initial Comparison: None Technique: Color Doppler duplex and grayscale sonographic imaging of the right lower extremity was performed. Findings: There is no evidence for acute deep venous thrombosis in the right thigh. Specifically, serial graded compression was performed from the inguinal ligament to the popliteal bifurcation, on the right thigh, demonstrating appropriate compressibility of the deep venous system. In addition, color and pulsed Doppler demonstrate appropriate spontaneous flow, variation with respiration, and augmentation with calf compression. At the ankle, normal flow is identified in the posterior tibial veins; these vessels are also normal in caliber. Impression: No evidence of acute DVT in the right lower limb. There is a preliminary report by virtual radiologic. .
== END 2016-07-05 21:58 | disposition home or self-care (01) ==
LOC: ED 18:36
DX: M25.561 Pain in right knee (principal); M79.651 Pain in right thigh; M79.89 Other specified soft tissue disorders; Z79.01 Long term (current) use of anticoagulants; Z96.651 Presence of right artificial knee joint
CPT/HCPCS: 36415; 80053; 85007; 85027; 85610; 93971; 96372; 99284; J1170; J1650